=== PATIENT | male | born 1960 | race Caucasian/White ===

== ENCOUNTER 2017-11-06 08:24 | Emergency (ER) | payer SELFPAY ==
[~2017-11-06] VITALS: Ht 167.6 cm; Wt 82.7 kg
[~2017-11-06 08:24] MED LIST: ATA10 PO; CIPR500T4 PO; HYDR1TAB PO; LISI-420 PO
[2017-11-06 08:29] VITALS: BP 100/56
--- NOTE | 2017-11-06 08:35 | NUR ---
PT AMBULATED TO BED 7
[2017-11-06] MEDS ORDERED: IBUPROFEN 400 MG TAB PO ONE (08:55)
--- NOTE | 2017-11-06 09:07 | NUR ---
PT COMES TO ED C/O RT HAND PAIN S/P PUNCTURE WOUND TO RT HAND FROM WORKING WITH IRON RODS. NO BLEEDING, MILD SWELLING. +CSM TO HAND. NAD NOTED/STATED OTHERWISE.
[2017-11-06 09:40] VITALS: BP 120/70
== END 2017-11-06 09:41 | disposition home or self-care (01) ==
LOC: MED 08:24
DX: S61.431A Puncture wound without foreign body of right hand, initial encounter (principal); I10 Essential (primary) hypertension; E11.9 Type 2 diabetes mellitus without complications; Z79.899 Other long term (current) drug therapy; W26.8XXA Contact with other sharp object(s), not elsewhere classified, initial encounter; Y93.89 Activity, other specified; Y92.098 Other place in other non-institutional residence as the place of occurrence of the external cause; Y99.8 Other external cause status
CPT/HCPCS: 73120; 90471; 90715; 99284; Q0092